=== PATIENT | male | born 1960 | race Asian ===

== ENCOUNTER 2020-07-19 13:40 | Observation (INO) | payer BC ==
[2020-07-19 13:50] VITALS: BMI 25.1
[2020-07-19] MEDS ORDERED: ACETAMINOPHEN 325 MG TABLET (FP) PO ONE (14:29)
[2020-07-19] MEDS ORDERED: ACETAMINOPHEN 325 MG TABLET (FP) ONE (15:02)
[2020-07-19 16:00] LABS: BASO % 0.9 % (0-2.0); EOS % 1.8 % (0-4.5); HEMATOCRIT 42.3 % (35.4-49); LYMPH % 23.7 % (8-40); MCH 32.3 pg (25.7-33.7); MCHC 35.6 g/dl (32.0-35.9); MEAN CELL VOLUME 90.9 fl (80-96); MEAN PLT VOLUME 8.1 fl (7.5-11.1); MONO % 6.8 % (3.8-10.2); NEUT % 66.8 % (42.8-82.8); PLATELET COUNT 251 K/MM3 (134-434); RBC 4.65 M/mm3 (4.00-5.60); RDW 13.3 % (11.9-15.9); WHITE BLOOD COUNT 7.8 K/mm3 (4.0-10.0)
[2020-07-19 16:20] LABS: CHLORIDE 110 mmol/L (98-107); POTASSIUM 3.7 mmol/L (3.5-5.1); SODIUM 143 mmol/L (136-145)
[2020-07-19 16:22] LABS: CALCIUM 8.7 mg/dL (8.5-10.1)
[2020-07-19 16:23] LABS: ALBUMIN 3.9 g/dl (3.4-5.0); ANION GAP 6 MMOL/L (8-16); CO2 26 mmol/L (21-32); GLUCOSE,RANDOM 98 mg/dL (74-106)
[2020-07-19 16:26] LABS: SGOT/AST 22 U/L (15-37); SGPT/ALT 39 U/L (13-61)
[2020-07-19 16:28] LABS: BILIRUBIN,TOTAL 1.3 mg/dL (0.2-1); TOT PROT 7.1 g/dl (6.4-8.2)
[2020-07-19 16:29] LABS: ALK PHOS 53 U/L (45-117)
[2020-07-20 07:05] LABS: BASO % 0.9 % (0-2.0); EOS % 3.4 % (0-4.5); HEMATOCRIT 43.1 % (35.4-49); HEMOGLOBIN 14.9 GM/dL (11.7-16.9); LYMPH % 28.9 % (8-40); MCHC 34.7 g/dl (32.0-35.9); MEAN CELL VOLUME 92.1 fl (80-96); MEAN PLT VOLUME 8.3 fl (7.5-11.1); MONO % 6.8 % (3.8-10.2); PLATELET COUNT 226 K/MM3 (134-434); RBC 4.68 M/mm3 (4.00-5.60); WHITE BLOOD COUNT 8.1 K/mm3 (4.0-10.0)
[2020-07-20 07:41] LABS: POTASSIUM 3.7 mmol/L (3.5-5.1)
[2020-07-20 07:55] LABS: BLOOD UREA NITROGEN 14.5 mg/dL (7-18); CALCIUM 8.8 mg/dL (8.5-10.1)
[2020-07-20 07:56] LABS: ALBUMIN 3.7 g/dl (3.4-5.0); MAGNESIUM 2.4 mg/dL (1.8-2.4)
[2020-07-20 07:58] LABS: PHOSPHOROUS 3.3 mg/dL (2.5-4.9)
[2020-07-20 07:59] LABS: BILIRUBIN,TOTAL 1.8 mg/dL (0.2-1); TOT PROT 6.8 g/dl (6.4-8.2)
[2020-07-20] MEDS ORDERED: ENOXAPARIN NA (PORCINE) 40 MG/0.4 ML DISP.SYRIN SQ SCH (10:00)
[2020-07-20] MEDS ORDERED: ENOXAPARIN NA (PORCINE) 40 MG/0.4 ML DISP.SYRIN SQ ONE (11:11)
[2020-07-20 11:45] VITALS: BP 118/71; PULSE 61; TEMP 98.2
== END 2020-07-20 12:05 | disposition home or self-care (01) ==
LOC: JER 13:40 → JERBED 16:29
PROVIDERS: ADMIT Internal Medicine; ATTEND Internal Medicine
PROC: 3E023GC Introduction of Other Therapeutic Substance into Muscle, Percutaneous Approach (ICD-10-PCS; principal; 2020-07-19)
DX: E78.00 Pure hypercholesterolemia, unspecified (principal); I10 Essential (primary) hypertension; R55 Syncope and collapse; I45.10 Unspecified right bundle-branch block; R42 Dizziness and giddiness; S00.93XA Contusion of unspecified part of head, initial encounter; W10.2XXA Fall (on)(from) incline, initial encounter; Y93.89 Activity, other specified; Y92.89 Other specified places as the place of occurrence of the external cause; Z29.9 Encounter for prophylactic measures, unspecified
CPT/HCPCS: 36415; 71046-TC-FY; 80053; 80061; 83036; 83721; 83735; 84100; 84443; 84484; 85025; 93005; 93010; 93306-TC; 93880-TC; 99285-25; C9803; G0378; U0003